=== PATIENT | female | born 1985 | race Caucasian/White ===

== ENCOUNTER 2019-01-01 19:34 | Emergency (ER) | payer OTHER ==
[~2019-01-01] VITALS: Ht 149.9 cm; Wt 92.7 kg
[2019-01-01 19:35] VITALS: BP 132/83
[2019-01-01] MEDS ORDERED: METF-882 PO (19:37)
[2019-01-01] MEDS ORDERED: [UNRECOGNIZED DRUG - REMARK] (19:38)
[2019-01-01] MEDS ORDERED: WELLTAB40 PO (19:38)
[2019-01-01] MEDS ORDERED: FLON1SPR NARES (21:27)
[2019-01-01] MEDS ORDERED: AUGM875T28 PO (21:27)
[2019-01-01] MEDS ORDERED: MUCI600T31 PO (21:27)
[2019-01-01] MEDS ORDERED: ZYRTTAB8 PO (21:27)
[2019-01-01] MEDS ORDERED: NORCO 5/325MG TABLET (BULK FOR ED) PO ONE (21:30)
[2019-01-01] MEDS ORDERED: AUGMENTIN 875 MG TAB PO ONE (21:30)
== END 2019-01-01 21:34 | disposition home or self-care (01) ==
LOC: M ED 19:34
DX: J01.90 Acute sinusitis, unspecified (principal); Z79.84 Long term (current) use of oral hypoglycemic drugs; Z79.899 Other long term (current) drug therapy

== ENCOUNTER → 2019-01-28 | Outpatient (CLI) | payer OTHER ==
[~2019-01-28] MED LIST: AUGM875T28 PO; FLON1SPR NARES; METF-882 PO; MUCI600T31 PO; WELLTAB40 PO; ZYRTTAB8 PO; [UNRECOGNIZED DRUG - REMARK]
--- NOTE | 2019-01-28 09:19 | REP ---
Maxillofacial CT study without contrast: History: Chronic rhinitis. Acute recurrent maxillary sinusitis. No comparison sinus imaging. Findings: There is a mucous retention cyst in the floor the left maxillary sinus 1.4 cm in greatest diameter. There is fairly extensive mucosal thickening and opacification of the right maxillary sinus. Bony sinus margins are intact. There is mild mucosal thickening affecting the ethmoid air cells right greater than left. Frontal sinuses are hypoplastic bilaterally. Mastoid aeration is normal and symmetric. Sphenoid sinuses unremarkable and fully aerated. No intraorbital abnormality is seen. Visualized intracranial and deep facial structures are unremarkable. On coronal multiplanar re-formation images there is mucosal thickening bilaterally narrowing the ostium and infundibulum right more so than left. Nasal turbinate soft tissues are normal and symmetric. No evidence of nasal polyp. Impression: Mucosal changes affecting the maxillary and ethmoid sinuses as above right more so than left. Electronically Signed by Alen Barajas MD 01/28/2019 10:27 A
== END ==
LOC: M RAD 06:46
PROVIDERS: ATTEND Specialist
DX: J01.01 Acute recurrent maxillary sinusitis (principal); J31.0 Chronic rhinitis; J34.2 Deviated nasal septum